=== PATIENT | female | born 1945 | race Caucasian/White ===

== ENCOUNTER 2017-03-31 14:05 | Emergency (ER) | payer MEDICARE, OTHER ==
[~2017-03-31 14:05] MED LIST: ASPIR 8181 MG PO; AUGMENTIN 875-1 EACH PO; AUGMENTIN TAB875 MG PO; DEXILANT60 MG PO; DUONEB INH; ENSURE PLUS237 ML PO; FERROUS SULFAT325 M2 PO; GABAPENTIN100 MG PO; LIPITOR TAB 2020 MG PO; LORTAB 5-325 M1 EACH PO; MEGACE400 MG/10 PO; NITROSTAT0.4 MG SL; PROVENTIL HFA 61 INH INH; QVAR8.7 G1 INH; SPIRIVA18 MCG INH; THERAGRAN TAB1 EA PO; TRAZODONE HCL50 MG PO; VIGAMOX3 ML OP; ZYVOX600 MG PO
[2017-03-31 15:27] LABS: HEMOGLOBIN 10.3 gm/dl (12.3-15.3); RED BLOOD COUNT 3.63 M/UL (4.00-5.10); WHITE BLOOD COUNT 9.6 K/UL (4.5-11.0)
[2017-03-31 15:56] LABS: BUN/CREATININE RATIO 14 (0-10)
[2017-08-12] MEDS ORDERED: ALPRAZOLAM0.5 MG PO (17:14)
[2017-08-12] MEDS ORDERED: FLOVENT 110.088 GM/I INH (17:15)
[2017-08-12] MEDS ORDERED: MORPHINE SULFAT30 M1 PO (17:17)
[2017-08-12] MEDS ORDERED: SENNA8.6 MG PO (17:17)
[2017-08-12] MEDS ORDERED: COMBIVENT0.074 GM/I INH (17:18)
[2017-08-26] MEDS ORDERED: DURAGESIC 25 MCG1 EA TD (18:19)
== END 2017-03-31 19:56 | disposition home or self-care (01) ==
LOC: ER1 14:05
PROVIDERS: Preventive Medicine Occupational Medicine
DX: R91.8 Other nonspecific abnormal finding of lung field (principal); I10 Essential (primary) hypertension; I25.10 Atherosclerotic heart disease of native coronary artery without angina pectoris; J44.9 Chronic obstructive pulmonary disease, unspecified; F17.200 Nicotine dependence, unspecified, uncomplicated
CPT/HCPCS: 36415; 71020; 80053; 81001; 82150; 82550; 82553; 83605; 83690; 83874; 83880; 84484; 85025; 85379; 87040; 93005; 96374; 96375; 99285; J2270; J2930; J7030; J7050; Q9963

== ENCOUNTER → 2017-04-15 | Day surgery (SDC) | payer MEDICARE, OTHER ==
[~2017-04-15] MED LIST changes: +ALPRAZOLAM0.5 MG PO; +COMBIVENT0.074 GM/I INH; +DURAGESIC 25 MCG1 EA TD; +FERROUS SULFAT325 MG PO; +FLOVENT 110.088 GM/I INH; +LEVAQUIN750 MG PO; +MEGACE SUSP40 MG/M1 PO; +MIRALAX17 GM PO; +MORPHINE SULFAT30 M1 PO; +SENNA8.6 MG PO; +VENTOLIN/PROVE0.5 ML INH
== END | disposition home or self-care (01) ==
LOC: OR 06:11
PROVIDERS: Internal Medicine Pulmonary Disease
PROC: 0BBB8ZX Excision of Left Lower Lobe Bronchus, Via Natural or Artificial Opening Endoscopic, Diagnostic (ICD-10-PCS; 2017-04-15)
PROC: 0BBB8ZX Excision of Left Lower Lobe Bronchus, Via Natural or Artificial Opening Endoscopic, Diagnostic (ICD-10-PCS; 2017-04-15)
PROC: 0B9B8ZX Drainage of Left Lower Lobe Bronchus, Via Natural or Artificial Opening Endoscopic, Diagnostic (ICD-10-PCS; principal; 2017-04-15 07:30)
DX: C34.92 Malignant neoplasm of unspecified part of left bronchus or lung (principal); R91.8 Other nonspecific abnormal finding of lung field; J44.9 Chronic obstructive pulmonary disease, unspecified; K21.9 Gastro-esophageal reflux disease without esophagitis; M19.90 Unspecified osteoarthritis, unspecified site; Z99.81 Dependence on supplemental oxygen; Z87.440 Personal history of urinary (tract) infections; Z87.891 Personal history of nicotine dependence; Z82.49 Family history of ischemic heart disease and other diseases of the circulatory system; Z79.82 Long term (current) use of aspirin; Z79.899 Other long term (current) drug therapy; Z90.49 Acquired absence of other specified parts of digestive tract
CPT/HCPCS: 76000; 88341; 88342; J2250; J7120

== ENCOUNTER 2017-04-29 10:50 | Inpatient (IN) | payer MEDICARE, OTHER ==
[~2017-04-29] VITALS: Ht 165.1 cm; Wt 56.7 kg
[~2017-04-29 10:50] MED LIST changes: -ALPRAZOLAM0.5 MG PO; -COMBIVENT0.074 GM/I INH; -DURAGESIC 25 MCG1 EA TD; -FERROUS SULFAT325 MG PO; -FLOVENT 110.088 GM/I INH; -LEVAQUIN750 MG PO; -MEGACE SUSP40 MG/M1 PO; -MIRALAX17 GM PO; -MORPHINE SULFAT30 M1 PO; -SENNA8.6 MG PO; -VENTOLIN/PROVE0.5 ML INH
[2017-04-29 16:20] LABS: HEMOGLOBIN 8.5 gm/dl (12.3-15.3); RED BLOOD COUNT 3.11 M/UL (4.00-5.10); WHITE BLOOD COUNT 23.8 K/UL (4.5-11.0)
[2017-04-29 16:41] LABS: BUN/CREATININE RATIO 21 (0-10)
[2017-04-29] MEDS ORDERED: VENTOLIN/PROVE0.5 ML INH (20:25)
[2017-04-30 03:57] LABS: HEMOGLOBIN 7.4 gm/dl (12.3-15.3)
[2017-04-30 03:58] LABS: RED BLOOD COUNT 2.69 M/UL (4.00-5.10); WHITE BLOOD COUNT 12.3 K/UL (4.5-11.0)
[2017-04-30 04:14] LABS: BUN/CREATININE RATIO 17 (0-10)
[2017-04-30] MEDS ORDERED: MEGACE SUSP40 MG/M1 PO (20:24)
[2017-05-01 04:42] LABS: HEMOGLOBIN 7.1 gm/dl (12.3-15.3); RED BLOOD COUNT 2.61 M/UL (4.00-5.10)
[2017-05-01 04:59] LABS: BUN/CREATININE RATIO 13 (0-10)
[2017-05-02 04:41] LABS: HEMOGLOBIN 7.7 gm/dl (12.3-15.3); RED BLOOD COUNT 2.87 M/UL (4.00-5.10); WHITE BLOOD COUNT 8.2 K/UL (4.5-11.0)
[2017-05-02 05:08] LABS: BUN/CREATININE RATIO 10 (0-10)
[2017-05-03 03:42] LABS: HEMOGLOBIN 7.7 gm/dl (12.3-15.3); RED BLOOD COUNT 2.87 M/UL (4.00-5.10); WHITE BLOOD COUNT 9.5 K/UL (4.5-11.0)
[2017-05-03 04:02] LABS: BUN/CREATININE RATIO 13 (0-10)
[2017-05-03] MEDS ORDERED: FERROUS SULFAT325 MG PO (11:36)
[2017-05-03] MEDS ORDERED: MIRALAX17 GM PO (11:37)
[2017-05-03] MEDS ORDERED: LEVAQUIN750 MG PO (11:38)
[2017-08-12] MEDS ORDERED: ALPRAZOLAM0.5 MG PO (17:14)
[2017-08-12] MEDS ORDERED: FLOVENT 110.088 GM/I INH (17:15)
[2017-08-12] MEDS ORDERED: SENNA8.6 MG PO (17:17)
[2017-08-12] MEDS ORDERED: MORPHINE SULFAT30 M1 PO (17:17)
[2017-08-12] MEDS ORDERED: COMBIVENT0.074 GM/I INH (17:18)
[2017-08-26] MEDS ORDERED: DURAGESIC 25 MCG1 EA TD (18:19)
== END 2017-05-03 12:55 | disposition home or self-care (01) | DRG 871 ==
LOC: ER1 10:50 → CCU 17:06 → ZEROF 17:06 → CCU 20:14
PROVIDERS: Family Medicine; ADMIT Emergency Medicine
PROC: 05HB33Z Insertion of Infusion Device into Right Basilic Vein, Percutaneous Approach (ICD-10-PCS; principal; 2017-04-29)
DX: A41.9 Sepsis, unspecified organism (principal); J18.9 Pneumonia, unspecified organism; C34.90 Malignant neoplasm of unspecified part of unspecified bronchus or lung; E87.1 Hypo-osmolality and hyponatremia; J44.9 Chronic obstructive pulmonary disease, unspecified; B95.62 Methicillin resistant Staphylococcus aureus infection as the cause of diseases classified elsewhere; D64.9 Anemia, unspecified; D69.6 Thrombocytopenia, unspecified; E86.0 Dehydration; E78.5 Hyperlipidemia, unspecified; K21.9 Gastro-esophageal reflux disease without esophagitis; H91.90 Unspecified hearing loss, unspecified ear; G89.29 Other chronic pain; D50.9 Iron deficiency anemia, unspecified; Z99.81 Dependence on supplemental oxygen; Z87.891 Personal history of nicotine dependence; Z87.01 Personal history of pneumonia (recurrent)
CPT/HCPCS: 36415; 71010; 71020; 71250; 80048; 80053; 80202; 81001; 82550; 82553; 83605; 83735; 83874; 84484; 85025; 85027; 87040; 87070; 87077; 87081; 87186; 87205; 96361; 96374; 96375; 99291; J1642; J1956; J2405; J2543; J3370; J7030; J7050; J7070

== ENCOUNTER → 2017-05-13 | Outpatient (CLI) | payer MEDICARE, OTHER ==
[~2017-05-13] MED LIST changes: +ALPRAZOLAM0.5 MG PO; +COMBIVENT0.074 GM/I INH; +DURAGESIC 25 MCG1 EA TD; +FERROUS SULFAT325 MG PO; +FLOVENT 110.088 GM/I INH; +LEVAQUIN750 MG PO; +MEGACE SUSP40 MG/M1 PO; +MIRALAX17 GM PO; +MORPHINE SULFAT30 M1 PO; +SENNA8.6 MG PO; +VENTOLIN/PROVE0.5 ML INH
== END ==
LOC: EMI 05-05 15:00
DX: C34.32 Malignant neoplasm of lower lobe, left bronchus or lung (principal)
CPT/HCPCS: 70553; A9577; J7050